=== PATIENT | female | born 1965 | race Caucasian/White ===

== ENCOUNTER 2019-11-14 21:38 | Emergency (ER) | payer MEDICARE, MEDICAID, OTHER ==
[2019-11-14] MEDS ORDERED: NS 0.9% 1000 ML** 1,000 ML IV ONE (22:11)
[2019-11-14] MEDS ORDERED: Pantoprazole IV* 40 MG IV ONE (22:11)
[2019-11-14] MEDS ORDERED: Ondansetron INJ* 2 MG/ML VIAL IV ONE (22:11)
--- OUTSIDE RECORDS SUMMARY | 2019-11-14 22:35 | XMS REPORT | Continuity of Care Document ---
:1965 External Reference #:[id number] Author Name Sharlene Rodney M.D. 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 Social History Type Date Description Comments Sex Unknown Tobacco Use Start: Unknown End: Former Cigarette Smoker quit about 1987 Unknown ETOH Use Denies alcohol use Tobacco Use Start: Unknown End: Patient is a former smoker Unknown Smoking Status Reviewed: 10/26/18 Patient is a former smoker Allergies, Adverse Reactions, Alerts Active Allergies Reaction Severity Comments Date Valium shaky, fever, talking nonsense 05/25/2009 Inactive Allergies NKDA 05/25/2009 Medications Active Medications SIG Qnty Indications Ordering Provider Date Tolterodine Tartrate take 1 tablet by 180tabs Sharlene Rodney, 2012 mouth once or M.D. 2mg Tablets twice daily Baclofen take 1 to 2 180tabs Sharlene Rodney, 05/25/2009 10mg Tablets tablets by mouth M.D. three times daily as needed One Daily QG Unknown Tablets Medications Administered in Office Medication SIG Qnty Indications Ordering Provider Date Influenza,Unspecified Unknown 04/17/2018 Injection Immunizations CPT Code Status Date Vaccine Lot # [id number] Given 05/05/2019 Fluzone High Dose 82221 Given 06/27/2017 Influenza Virus Vaccine, Quadrivalent, Split, Preservative Free [id number] Given 05/03/2016 Flu Vaccine NOS [id number] Given 05/23/2015 Influenza Virus Vaccine, Quadrivalent, Split, [id number] Preservative Free 31058 Given 04/24/2014 Influenza Virus Vaccine, Quadrivalent, Split, [id number] Preservative Free [id number] Given 05/10/2013 Flu Vaccine Split Virus Preservative Free For [id number] Indiv 3Yr Older [id number] Given 04/22/2012 Fluzone Vaccine [id number] 04443 Given 05/08/2011 Influenza Virus 3Yrs & Over [id number] 63955 Given 06/18/2010 Influenza Virus 3Yrs & Over Vital Signs Date Vital Result Comment 10/26/2018 3:01pm Height 62 inches 5'2" Weight 122.00 lb Heart Rate 88 /min BP Systolic Sitting 116 mmHg BP Diastolic Sitting 70 mmHg O2 % BldC Oximetry 98 % BMI (Body Mass Index) 22.3 kg/m2 06/30/2017 1:32pm Weight 115.50 lb Heart Rate 91 /min BP Systolic 100 mmHg BP Diastolic 60 mmHg Body Temperature 98.4 F O2 % BldC Oximetry 99 % Results Description No Information Available Procedures Date Code Description Status 11/06/2014 98789709 Mammogram Completed 11/01/2012 [id number] Mammogram Completed 03/19/2011 [id number] Mammogram Completed Medical Devices Description No Information Available Encounters Type Date Location Provider Dx Diagnosis Office Visit 10/31/2019 [facility] Sharlene Rodney, G11.1 Early-onset 1:20p Medicine - [facility] cerebellar ataxia Z12.31 Encntr screen mammogram for malignant neoplasm of breast Assessments Date Code Description Provider 10/31/2019 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 10/31/2019 Z12.31 Encounter for screening mammogram for Sharlene Rodney M.D. malignant neoplasm of breast Plan of Treatment 10/31/2019 - Sharlene Rodney M.D.G11.1 Early-onset cerebellar ataxiaComments: Continue the same medicationsFollow up:20 min appt for pap in [id number] Encounter for screening mammogram for malignant neoplasm of breast Functional Status Description No Information Available Mental Status Description No Information Available Referrals Description No Information Available
--- OUTSIDE RECORDS SUMMARY | 2019-11-14 22:35 | XMS REPORT | Continuity of Care Document ---
:1965 External Reference #:[id number] Author Name Sharlene Rodney M.D. Address [address], [place] [address] Problems Active Problems Provider Date Cerebellar ataxia [...] Qnty Indications Ordering Provider Date Tolterodine Tartrate Take 1 Tablet By 60tabs Sharlene Rodney, 06/06/2013 Mouth Once Or M.D. 2mg Tablets Twice Daily Baclofen Take 1 To 2 120tabs Sharlene Rodney, 05/25/2009 10mg Tablets Tablets By Mouth M.D. Three Times Daily as Needed One Daily QG Unknown Tablets Medications Administered in Office Medication SIG Qnty Indications Ordering Provider Date Influenza,Unspecified Unknown 04/17/2018 Injection Immunizations CPT Code Status Date Vaccine Lot # [id number] Given 05/05/2019 Fluzone High Dose 43696 Given 06/27/2017 Influenza Virus Vaccine, Quadrivalent, Split, Preservative Free Q2039 Given 05/03/2016 Flu Vaccine NOS [id number] Given 05/23/2015 Influenza Virus Vaccine, Quadrivalent, Split, [id number] Preservative Free 88932 Given 04/24/2014 Influenza Virus Vaccine, Quadrivalent, Split, [id number] Preservative Free 14409 Given 05/10/2013 Flu Vaccine Split Virus Preservative Free For [id number] Indiv 3Yr Older Q2038 Given 04/22/2012 Fluzone Vaccine [id number] 75665 Given 05/08/2011 Influenza Virus 3Yrs & Over [id number] 13034 Given 06/18/2010 Influenza Virus 3Yrs & Over [...] Available Procedures Date Code Description Status 11/06/2014 [id number] Mammogram Completed 11/01/2012 [id number] Mammogram Completed 03/19/2011 [id number] Mammogram Completed Medical Devices Description No Information Available Encounters Description No Information Available Assessments Date Code Description Provider 10/31/2019 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 10/31/2019 Z12.31 Encounter for screening mammogram for Sharlene Rodney M.D. malignant neoplasm of breast Plan of Treatment 10/31/2019 - Sharlene Rodney M.D.G11.1 Early-onset cerebellar ataxiaComments: Continue the same medicationsFollow up:20 min appt for pap in [id number] Encounter for screening mammogram for malignant neoplasm of breastNew Xrays:[facility] Screening Mammogram, Ordered: 10/31/19 Functional Status Description No Information Available Mental Status Description No Information Available Referrals Description No Information Available
--- NOTE | 2019-11-14 23:03 | ED ---
Complex/Multi-Sys Presentation - HPI Summary HPI Summary: 53 year old female presents with sinus congestion for the past week. She states that she's been spitting up. States she has had a history of difficulty swallowing. No change in swallowing. Denies a neuro deficits. States feels very weak. Denies any cough. She admits to sore throat. No chest pain shortness breath. no fevers. She admits to nausea but no vomiting. She admits to epigastric pain. 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 She has rare form of MS. - History Of Current Complaint Chief Complaint: EDGeneral Time Seen by Provider: 11/14/19 21:52 - Allergies/Home Medications Allergies/Adverse Reactions: Allergies Allergy/AdvReac Type Severity Reaction Status Date / Time No Known Allergies Allergy Verified 11/13/14 13:26 Home Medications: Home Medications Baclofen TAB* [Lioresal TAB*] 10 - 20 mg PO TID PRN 11/14/19 [History Confirmed 11/14/19] Tolterodine (NF) [Detrol (NF)] 2 mg PO BID 11/14/19 [History Confirmed 11/14/19] Amoxicillin/Clavulanate SUSP* [Augmentin SUSP*] 880 mg PO Q12H #1 btl 11/15/19 [ Rx] Ondansetron ODT TAB* [Zofran 4 MG Odt TAB*] 4 mg PO Q6H PRN #16 tab.odt [Rx] PMH/Surg Hx/FS Hx/Imm Hx Endocrine/Hematology History: Denies: Hx Anticoagulant Therapy Neurological History: Reports: Other Neuro Impairments/Disorders - Cancer History Hx Chemotherapy: No Hx Radiation Therapy: No Infectious Disease History: No Infectious Disease History: Denies: Traveled Outside the [place] in Last 30 Days - Family History Known Family History: Positive: Non-Contributory - Social History Substance Use Type: Reports: None Smoking Status (MU): Never Smoked Tobacco Review of Systems Negative: Fever Positive: Sore Throat, Nasal Discharge Negative: Chest Pain Negative: Shortness Of Breath All Other Systems Reviewed And Are Negative: Yes Physical Exam Triage Information Reviewed: Yes Vital Signs On Initial Exam: Initial Vitals Temp Pulse Resp BP Pulse Ox 99.4 F 116 19 159/95 95 11/14/19 21:49 11/14/19 21:49 11/14/19 21:49 11/14/19 21:49 11/14/19 21:49 Vital Signs Reviewed: Yes Appearance: Positive: Well-Appearing Skin: Positive: Warm, Dry Head/Face: Positive: Normal Head/Face Inspection Eyes: Positive: Normal, Conjunctiva Clear ENT: Positive: Pharynx normal, TMs normal, Sinus tenderness Respiratory/Lung Sounds: Positive: Clear to Auscultation, Breath Sounds Present Cardiovascular: Positive: Normal, RRR Abdomen Description: Positive: Soft, Other: - tenderness epgiastric region Bowel Sounds: Positive: Present Musculoskeletal: Positive: Normal Neurological: Positive: Normal Psychiatric: Positive: Normal Procedures - Sedation Patient Received Moderate/Deep Sedation with Procedure: No Diagnostics - Vital Signs Vital Signs Temp Pulse Resp BP Pulse Ox 11/14/19 21:49 99.4 F 116 19 159/95 95 - Laboratory Result Diagrams: 11/14/19 23:00 11/14/19 23:00 Lab Statement: Any lab studies that have been ordered have been reviewed, and results considered in the medical decision making process. - Ultrasound No standard instances Ultrasound Interpretation Completed By: Radiologist Summary of Ultrasound Findings: IMPRESSION: 1. Gallbladder sludge with small 3 mm polyp on the anterior wall. 2. Otherwise negative right upper quadrant sonogram. Re-Evaluation - Re-Evaluation First Eval Re-Evaluation Time: 23:52 Comment: discussed with that started getting sick right when went back to work. has had nausea and vomiting bile for past week. no pain. has had sinus congestion for past week. does not ambulate on own. has been weaker. has history of chronic migraines. was given liter of fluids by EMS today which made her less lethargic. Second Eval Re-Evaluation Time: 01:16 Comment: discussed with results and he states she has frequent sinus infections. Complex Multi-Symp Course/Dx Course Of Treatment: 53 year old female presents with sinus congestion for the past week. She states that she's been spitting up. States she has had a history of difficulty swallowing. No change in swallowing. Denies a neuro deficits. States feels very weak. Denies any cough. She admits to sore throat. No chest pain shortness breath. no fevers. She admits to nausea but no vomiting. She admits to epigastric pain. 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 On exam sinus congestion noted. Pharynx normal. Tenderness in RUQ but when asked says has no pain. wbc 11.7. gallbladder u/s shows sludge. crp elevated. will place on augmentin for sinus infection. gave zofran for nausea. will have follow up with primary. - Diagnoses Differential Diagnoses/HQI/PQRI: Metabolic Abnormality, Urinary Tract Infection , Other - gastritis, gallbladder disease Provider Diagnoses: Vomiting, Sinusitis - Critical Care Time Critical Care Statement: Critical care time is provided exclusive of any time spent performing procedures. Discharge ED - Sign-Out/Discharge Documenting (check all that apply): Patient Departure - Discharge Plan Condition: Good Disposition: HOME Prescriptions: Amoxicillin/Clavulanate SUSP* [Augmentin SUSP*] 880 mg PO Q12H #1 btl Ondansetron ODT TAB* [Zofran 4 MG Odt TAB*] 4 mg PO Q6H PRN #16 tab.odt PRN Reason: Nausea Patient Education Materials: Sinusitis (ED) Forms: COVID-19 Tested & Isolation Referrals: Sharlene Rodney MD [Primary Care Provider] - Additional Instructions: Use saline spray in nose as much as needed take augmentin 11ml twice a day for 10 days take zofran every 6 hours as needed for nausea You have been tested for coronavirus. The department of health will contact you with results when available and with any additional instruction. You should stay in your house and self quarantine. You should wear a mask if you're outside of your personal room. We encourage handwashing as well as limited contact with other people. Drink plenty of fluids and rest Follow up with primary within 5 days Return to ED if develop any new or worsening symptoms - Billing Disposition and Condition Condition: GOOD Disposition: Home
[2019-11-14] MEDS ORDERED: Baclofen TAB* 10 MG PO ONE (23:33)
[2019-11-15 00:42] LABS: Hematocrit 48 % (35-47); Hemoglobin 16.3 g/dL (12.0-16.0); Mean Corpuscular HGB Conc 34 g/dL (31-36); Mean Corpuscular Hemoglobin 30 pg (27-31); Mean Corpuscular Volume 90 fL (80-97); Mean Platelet Volume 9.2 fL (7.4-10.4); Platelet Count 190 10^3/uL (150-450); Red Blood Count 5.36 10^6 /uL (3.70-4.87); Red Cell Distribution Width 12 % (10-15); White Blood Count 11.7 10^3/uL (3.5-10.8)
[2019-11-15 00:57] LABS: Albumin 3.9 g/dL (3.2-5.2); Albumin/Globulin Ratio 1.1 (1-3); BUN/Creatinine Ratio 24.6 (8-20); C Reactive Protein 50.72 mg/L (<8.01); Calcium 9.3 mg/dL (8.6-10.3); EGFR African American 107.7 (>60); Globulin 3.4 g/dL (2-4); Potassium 3.4 mmol/L (3.5-5.0); Total Bilirubin 0.7 mg/dL (0.2-1.0); Total Protein 7.3 g/dL (6.4-8.9)
[2019-11-15] MEDS ORDERED: Amoxicillin/Clavulanate SUSP* 400 MG/5 ML BTL PO ONE (01:13)
[2019-11-15] MEDS ORDERED: O ndansetron ODT 4MG 5TAB PRPK 4 MG PAK PO ONE (01:15)
[2019-11-15] MEDS ORDERED: Acetaminophen ADULT LIQ* 650 MG/20.3 ML UDC PO ONE (01:28)
[2019-11-15] MEDS ORDERED: Amoxicillin/Clavulan* ORALSYR 80 MG/ML (400 MG/5 ML) PO ONE (01:45)
[2019-11-15 02:32] VITALS: BP 145/89
== END 2019-11-15 02:15 | disposition home or self-care (01) ==
LOC: ED 21:38
DX: J32.9 Chronic sinusitis, unspecified (principal); E86.0 Dehydration; R11.2 Nausea with vomiting, unspecified; J02.9 Acute pharyngitis, unspecified
CPT/HCPCS: 36415; 76705; 80053; 83605; 83690; 85025; 86140; 87040; 87635; 96374; 96375; 99282; A9270-GY; J2405; U0003